=== PATIENT | female | born 1980 | race Caucasian/White ===

== ENCOUNTER 2017-03-13 18:21 | Emergency (ER) | payer OTHER | END 2017-03-13 20:38 | disposition home or self-care (01) | LOC: ER 18:21 | DX: G44.209 Tension-type headache, unspecified, not intractable (principal); M19.90 Unspecified osteoarthritis, unspecified site; Z79.1 Long term (current) use of non-steroidal anti-inflammatories (NSAID); Z79.899 Other long term (current) drug therapy | CPT/HCPCS: 96372; 99283-25; J2765 ==